=== PATIENT | male | born 1975 | race Caucasian/White ===

== ENCOUNTER 2024-11-06 09:45 | Inpatient (IN) | payer OTHER, BC ==
[~2024-11-06] VITALS: Ht 172.7 cm; Wt 65.1 kg
[2024-11-06] MEDS ORDERED: Diphth,Pertuss(Acell),Tet Vac 0.5 ML VIAL IM ONE ×2 (10:15→13:10)
[2024-11-06 10:24] LABS: BASOPHILS ABSOLUTE AUTO 0.04 K/mm3 (0.00-0.23); BASOPHILS PERCENT AUTO 0 % (0-2); EOSINOPHILS ABSOLUTE AUTO 0.03 K/mm3 (0.00-0.68); EOSINOPHILS PERCENT AUTO 0 % (0-6); Hematocrit 38.5 % (37.0-53.0); Hemoglobin 12.8 g/dL (13.5-17.5); IMMATURE GRAN ABSOLUTE AUTO 0.05 K/mm3 (0.00-0.10); IMMATURE GRAN PERCENT AUTO 0 % (0-1); LYMPHOCYTES ABSOLUTE AUTO 1.08 K/mm3 (0.84-5.20); LYMPHOCYTES PERCENT AUTO 6 % (21-46); MONOCYTES ABSOLUTE AUTO 2.09 K/mm3 (0.16-1.47); MONOCYTES PERCENT AUTO 12 % (4-13); Mean Corpuscular HGB 30.7 pg (26.0-34.0); Mean Corpuscular HGB Conc 33.2 g/dL (31.5-36.5); Mean Corpuscular Volume 92 fL (80-100); Mean Platelet Volume 9.2 fL (9.1-12.4); NEUTROPHILS ABSOLUTE AUTO 13.83 K/mm3 (1.96-9.15); NEUTROPHILS PERCENT AUTO 81 % (41-73); Platelet Count 305 K/mm3 (150-400); RDW Coefficient Variation 12.1 % (11.7-14.2); RDW Standard Deviation 41.1 fL (35.1-46.3); Red Blood Cell Count 4.17 M/mm3 (4.30-5.90); White Blood Cell Count 17.12 K/mm3 (4.00-11.30)
[2024-11-06 10:57] LABS: Albumin, Blood 3.5 g/dL (3.4-5.0); Albumin/Globulin Ratio 1.1 (0.8-1.8); Bilirubin, Total 0.9 mg/dL (0.1-1.0); Bun/Creatinine Ratio 20.8 (12.0-20.0); C-Reactive Protein, High Sens. 27.1 mg/L (0.000-3.000); Calcium, Blood 8.5 mg/dL (8.5-10.1); Creatinine, Blood 0.72 mg/dL (0.60-1.20); Globulin, Blood 3.2 g/dL (2.2-4.0); Potassium, Blood 3.5 mmol/L (3.5-5.5); Total Protein, Blood 6.7 g/dL (6.4-8.2)
[2024-11-06] MEDS ORDERED: NS 1,000 ML IV SCH ×2 (11:40)
[2024-11-06] MEDS ORDERED: Vancomycin HCL 1,250 MG in NS 250 ML IV ONE (12:00)
[2024-11-06] MEDS ORDERED: Ketorolac Tromethamine 15mg Vial IV ONE (12:30)
[2024-11-06] MEDS ORDERED: CeFAZolin Sodium 2,000 MG in NS 100 ML IV ONE (13:15)
[2024-11-06] MEDS ORDERED: Acetaminophen 325 MG TABLET PO PRN (14:50)
[2024-11-06] MEDS ORDERED: HYDROmorphone HCl 2 MG Tab PO PRN (14:50)
[2024-11-06] MEDS ORDERED: Prochlorperazine Edisylate 10 mg Vial IV PRN (14:55)
[2024-11-06] MEDS ORDERED: ALPRAZolam 0.5 MG Tab PO PRN (14:55)
[2024-11-06] MEDS ORDERED: Meropenem 1,000 MG in NS 100 ML IV SCH (16:00)
[2024-11-06 16:51] VITALS: BP 131/77
[2024-11-06] MEDS ORDERED: Cialis20 MG PO ×2 (16:56)
[2024-11-06] MEDS ORDERED: Vancomycin HCL 1,500 MG in NS 250 ML IV ONE (17:25)
[2024-11-06 20:21] VITALS: BP 117/78
--- NOTE | 2024-11-06 20:22 | NUR ---
PT ADMITTED TO ROOM 333 AT 1630 FROM THE ER ROOM. PT IS INDEPENDANT STEADY ON HIS FEET. ORIENTED TO ROOM SET UP AND CALL LIGHT. PT STATES PAIN IN RFA, WILL MEDICATE AND ADMIT PT.
[2024-11-06] MEDS ORDERED: Docusate Sodium 100 MG Cap PO SCH (21:00)
[2024-11-07] MEDS ORDERED: Vancomycin HCL 1,250 MG in NS 250 ML IV SCH (01:00)
--- NOTE | 2024-11-07 04:03 | NUR ---
SHIFT SUMMARY PATIENT HAD NO ACUTE CHANGES. ALERT ORIENTED AND INDEPENDENT IN ROOM. DENIES CHEST PAIN, SOB, AND N/V. LOW GRADE TEMP 99.2. REPORTED BILATERAL ARM PAIN AND PO DILAUDID 2 MG GIVEN PER EMAR. REPORTED ANXIETY AND XANAX 0.5 MG GIVEN PER EMAR. DRESSING TO BILATERAL ARMS INTACT. PIV INTACT. IV ABXS INFUSED. SLEPT MOST OF THE SHIFT. CALL LIGHT IN REACH. BED IN LOWEST POSITION. WILL CONTINUE TO MONITOR UNTIL DAY SHIFT NURSE ASSUMES CARE.
[2024-11-07 04:35] VITALS: BP 131/78
[2024-11-07 06:08] LABS: BASOPHILS ABSOLUTE AUTO 0.04 K/mm3 (0.00-0.23); BASOPHILS PERCENT AUTO 0 % (0-2); EOSINOPHILS PERCENT AUTO 1 % (0-6); Hematocrit 34.1 % (37.0-53.0); Hemoglobin 11.5 g/dL (13.5-17.5); IMMATURE GRAN ABSOLUTE AUTO 0.05 K/mm3 (0.00-0.10); IMMATURE GRAN PERCENT AUTO 0 % (0-1); LYMPHOCYTES ABSOLUTE AUTO 1.38 K/mm3 (0.84-5.20); LYMPHOCYTES PERCENT AUTO 9 % (21-46); MONOCYTES ABSOLUTE AUTO 2.14 K/mm3 (0.16-1.47); MONOCYTES PERCENT AUTO 14 % (4-13); Mean Corpuscular HGB 30.3 pg (26.0-34.0); Mean Corpuscular HGB Conc 33.7 g/dL (31.5-36.5); Mean Corpuscular Volume 90 fL (80-100); Mean Platelet Volume 9.5 fL (9.1-12.4); NEUTROPHILS ABSOLUTE AUTO 11.64 K/mm3 (1.96-9.15); NEUTROPHILS PERCENT AUTO 76 % (41-73); Platelet Count 281 K/mm3 (150-400); RDW Coefficient Variation 12.1 % (11.7-14.2); RDW Standard Deviation 39.9 fL (35.1-46.3); Red Blood Cell Count 3.79 M/mm3 (4.30-5.90); White Blood Cell Count 15.35 K/mm3 (4.00-11.30)
[2024-11-07 06:51] LABS: Albumin, Blood 2.8 g/dL (3.4-5.0); Albumin/Globulin Ratio 0.9 (0.8-1.8); Bilirubin, Total 0.9 mg/dL (0.1-1.0); Calcium, Blood 8.2 mg/dL (8.5-10.1); Creatinine, Blood 0.69 mg/dL (0.60-1.20); Potassium, Blood 3.7 mmol/L (3.5-5.5); Total Protein, Blood 5.8 g/dL (6.4-8.2)
[2024-11-07 08:19] VITALS: BP 117/81
--- NOTE | 2024-11-07 09:00 | NUR ---
pt laying in bed awake a/ox4, pleasant and cooperative with care, follows commands well, states he has a h/a this am, will give tylenol, lungs are clear t/o, resp even and unlabored, no cough noted, on r/a, hrr, no edema noted, ppp+2, cap refill <3 sec, vs stable, afebrile, piv to radha site is clear and patent, btx4, abd flat soft nontender, voids without diff, skin has sores to b/l fa's, with dressings in place, moses cristina, call light in reach.
[2024-11-07 16:18] VITALS: BP 134/94
[2024-11-07 17:07] LABS: Vancomycin, Trough 20.1 ug/mL (5.0-10.0)
[2024-11-07] MEDS ORDERED: Ketorolac Tromethamine 30mg Vial IV ONE (17:10)
[2024-11-07] MEDS ORDERED: Ketorolac Tromethamine 15mg Vial IV PRN (17:15)
[2024-11-07] MEDS ORDERED: Vancomycin HCL 1,000 MG in NS 250 ML IV SCH (18:00)
--- NOTE | 2024-11-07 18:23 | NUR ---
pt required one dose of pain meds for this shift, states the dilaudid wasn't really helping and feels his left arm is a bit more swollen, called with request for toradol, pt reports this took pain to 0, will keep npo after midnight, changed the dressings on his arms, no further changes this shift. call light in reach.
[2024-11-07 19:13] VITALS: BP 138/90
[2024-11-08] VITALS (15 sets, daily range): BP systolic 110–171; BP diastolic 80–93
--- NOTE | 2024-11-08 04:31 | NUR ---
SHIFT SUMMARY PT IS A/O X4, VERY PLEASANT AND ABLE TO MAKE HIS NEEDS KNOWN. NPO AFTER MIDNIGHT FOR I&D LE'S THIS MORNING. MEDICATED PER EMAR WITH TRAMADOL WHICH PT REPORTS EFFECTIVE. IV VANCO AND MEROPEREM INFUSED ORDERED. NO ACUTE EVENTS. BED AT THE LOWEST POSITION, CALL LIGHT W/I REACH.
[2024-11-08] MEDS ORDERED: propofoL 20 ML IV ONE ×2 (07:44→08:04)
[2024-11-08] MEDS ORDERED: FentaNYL Citrate 50 MCG/ML 2 ML Injection ONE ×2 (07:45→08:50)
[2024-11-08] MEDS ORDERED: Ondansetron HCl 2 MG / ML 2ML Vial ONE (07:54)
[2024-11-08] MEDS ORDERED: Dexamethasone Sod Phos 10 MG/ML 1ML VIAL ONE (07:54)
[2024-11-08] MEDS ORDERED: Vancomycin HCl 1000 MG ADDvantage ONE (08:10)
--- NOTE | 2024-11-08 08:31 | NUR ---
11/08/24 0831 Avani CantorYOMYCIN POWDER 1GM INSTILLED INTO OPERATIVE SITES. HALF OF VIAL INSTILLED INTO RIGHT FOREARM INCISION. HALF OF VIAL INSTILLED INTO LEFT FOREARM INCISION.
--- NOTE | 2024-11-08 08:44 | NUR ---
ASSUMPTION OF CARE: ASSUMED CARE OF PATIENT. AWAKE AND UP IN BATHROOM DURING SHIFT CHANGE REPORT. IMMEDIATE CALL @ SHIFT CHANGE FROM EMILY IN OR REQUESTING PATIENT BE UP, IN A GOWN, SALINE LOCKED AND MERRIPENUM @ BEDSIDE FOR TRANSFER TO OR FOR I/D. PATIENT NOTIFIED.
[2024-11-08] MEDS ORDERED: Ketorolac Tromethamine 30mg Vial ONE (08:50)
[2024-11-08 17:51] LABS: Vancomycin, Trough 17.3 ug/mL (5.0-10.0)
--- NOTE | 2024-11-09 03:35 | NUR ---
SHIFT SUMMARY NO ACUTE EVENTS DURING THIS SHIFT. VANCO INFUSED ORDERED. BILATERAL FOREARM DRESSINGS C/D/I. PT DENIES PAIN AND DISCOMFORT. A/OX4, INDEPENDENT WITHIN THE HOSPITAL ROOM AND COOPERATIVE WITH CARE. PT IS ABLE TO MAKE HIS NEEDS KNOWN. BED AT THE LOWEST POSITION, CALL LIGHT WITHIN REACH.
[2024-11-09 04:25] VITALS: BP 151/81
[2024-11-09 06:49] LABS: BASOPHILS ABSOLUTE AUTO 0.04 K/mm3 (0.00-0.23); BASOPHILS PERCENT AUTO 0 % (0-2); EOSINOPHILS ABSOLUTE AUTO 0.02 K/mm3 (0.00-0.68); EOSINOPHILS PERCENT AUTO 0 % (0-6); Hematocrit 34.5 % (37.0-53.0); Hemoglobin 11.8 g/dL (13.5-17.5); IMMATURE GRAN ABSOLUTE AUTO 0.05 K/mm3 (0.00-0.10); IMMATURE GRAN PERCENT AUTO 0 % (0-1); LYMPHOCYTES ABSOLUTE AUTO 2.02 K/mm3 (0.84-5.20); LYMPHOCYTES PERCENT AUTO 12 % (21-46); MONOCYTES ABSOLUTE AUTO 1.85 K/mm3 (0.16-1.47); MONOCYTES PERCENT AUTO 11 % (4-13); Mean Corpuscular HGB 30.9 pg (26.0-34.0); Mean Corpuscular HGB Conc 34.2 g/dL (31.5-36.5); Mean Corpuscular Volume 90 fL (80-100); Mean Platelet Volume 9.3 fL (9.1-12.4); NEUTROPHILS ABSOLUTE AUTO 12.25 K/mm3 (1.96-9.15); NEUTROPHILS PERCENT AUTO 76 % (41-73); Platelet Count 324 K/mm3 (150-400); RDW Coefficient Variation 11.9 % (11.7-14.2); RDW Standard Deviation 38.9 fL (35.1-46.3); Red Blood Cell Count 3.82 M/mm3 (4.30-5.90); White Blood Cell Count 16.23 K/mm3 (4.00-11.30)
[2024-11-09 07:08] LABS: Bun/Creatinine Ratio 13.6 (12.0-20.0); Calcium, Blood 8.5 mg/dL (8.5-10.1); Creatinine, Blood 0.81 mg/dL (0.60-1.20); Potassium, Blood 3.8 mmol/L (3.5-5.5)
--- NOTE | 2024-11-09 07:45 | NUR ---
ASSUMPTION OF CARE: THIS RN ASSUMED CARE OF PATIENT FOR SECOND DAY IN A ROW. AWAKE DURING SHIFT-CHANGE REPORT, SITTING UP IN BED. C/O 6/10 PAIN IN BUE, ESPECIALLY LAC. BREATHING EVEN AND UNLABORED ON ROOM AIR. MEDICATED PRN PAIN PO DILAUDID AND IV TORADOL. BED IN LOWEST POSITION. CALL LIGHT WITHIN REACH. ACUTE NEEDS MET.
[2024-11-09 08:11] VITALS: BP 138/75
[2024-11-09] MEDS ORDERED: Lisinopril 10 MG Tab PO SCH (09:00)
[2024-11-09 13:53] LABS: Percent Saturation 13.1 % (20.0-50.0)
[2024-11-09 16:41] VITALS: BP 156/88
--- NOTE | 2024-11-09 19:39 | NUR ---
END OF SHIFT SUMMARY: CONTACT PRECAUTIONS FOR POSITIVE MRSA CULTURE IN WOUNDS. A&Ox4. PLEASANT AND COOPERATIVE WITH CARE. CALLS APPROPRIATELY AND IS ABLE TO ADVOCATE NEEDS EFFECTIVELY. CONTINENT OF BOWEL AND BLADDER; LBM TODAY. AMBULATES INDEPENDENTLY. MEDS WHOLE c FLUIDS. MEDICATED PRN PAIN c IV TORADOL AND PO DILAUDID. CONTINUES c IV VANCO. C/O INCREASED PAIN AND "TIGHTNESS" LEFT ELBOW; AREA OF SWELLING AND REDNESS OUTLINED c SKIN MARKER AND DR. PICHARDO NOTIFIED. DRESSINGS LEFT IN PLACE PENDING INSTRUCTIONS FROM SURGEON. BED IN LOWEST POSITION, CALL LIGHT WITHIN REACH, ALL NEEDS MET. REPORT TO ONCOMING NURSE.
[2024-11-09 19:49] VITALS: BP 177/94
[2024-11-10] VITALS (11 sets, daily range): BP systolic 125–153; BP diastolic 80–97
[2024-11-10 06:04] LABS: Hematocrit 33.4 % (37.0-53.0); Hemoglobin 11.2 g/dL (13.5-17.5); Mean Corpuscular HGB 30.2 pg (26.0-34.0); Mean Corpuscular HGB Conc 33.5 g/dL (31.5-36.5); Mean Corpuscular Volume 90 fL (80-100); Mean Platelet Volume 9.4 fL (9.1-12.4); Platelet Count 339 K/mm3 (150-400); RDW Coefficient Variation 11.9 % (11.7-14.2); Red Blood Cell Count 3.71 M/mm3 (4.30-5.90); White Blood Cell Count 8.27 K/mm3 (4.00-11.30)
--- NOTE | 2024-11-10 06:08 | NUR ---
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 DRESSING IS CLEAN DRY AND INTACT., INDEPENDNT IN RM. C/O PAIN MEDICATION GIVEN RX AND PAIN DECREASED DOWN TO 0/10. PT REPORTED DILAUDUD ALONE WAS NOT DECREASEING PAIN, HOWEVER DILAUDID AND TORADOL TOGETHER DECREASED PAIN TO 0. PT WAS GIVEN INFORMTAION ON MRSA PER HIS REQUEST.
[2024-11-10 10:08] LABS: Vancomycin, Trough 23.1 ug/mL (5.0-10.0)
[2024-11-10] MEDS ORDERED: Lactated Ringer's 1,000 ML IV SCH (13:10)
[2024-11-10] MEDS ORDERED: propofoL 20 ML IV ONE (14:16)
[2024-11-10] MEDS ORDERED: FentaNYL Citrate 50 MCG/ML 2 ML Injection ONE ×2 (14:23→14:42)
--- NOTE | 2024-11-10 15:06 | NUR ---
11/10/24 1506 Avani Cantor PATIENT IS ON SCHEDULED VANCOMYCIN. NO ADDITIONAL PREOPERATIVE ANTIBIOTICS ORDERED.
[2024-11-10] MEDS ORDERED: Piperacillin/Tazobactam Sod 3.375 GM in NS 100 ML IV ONE (15:15)
--- NOTE | 2024-11-10 15:25 | NUR ---
NURSE NOTE: PT RETURNED FROM SURGERY. DRESSING C/D/I WITH WOUNDVAC IN PLACE. RESTING IN BED COMFORTABLY AT THIS TIME. PT STS PAIN IS A 4/10 AND THAT IS TOLERABLE. CALL LT WITHIN REACH.
[2024-11-10] MEDS ORDERED: Vancomycin HCL 750 MG in NS 250 ML IV SCH (16:00)
[2024-11-10] MEDS ORDERED: NS 250 ML IV PRN (16:10)
[2024-11-10] MEDS ORDERED: Ferrous Sulfate 325 MG Tab PO SCH (17:00)
--- NOTE | 2024-11-10 20:07 | NUR ---
SHIFT SUMMARY- PT ALERT AND ORIENTED, HE WAS INDEPENDENT, BUT POST-OP HE WAS CONNECTED TO THE WOUND VAC AND IV ABX SO HE HAS BEEN HAVING 1PA SINCE RETURNING FROM THE PROCEDURE. POST OP VITALS HAVE BEEN STABLE. NOW THAT IV IS SL THE PT MAY BE ABLE TO WALK TO THE BATHROOM. WB TOLLERATED ON THE BUE NWB ON THE 3RD PHALANGE THAT IS SPLINTED AFTER SURGICAL REPAIR RECENTLY. BEDSIDE REPORT COMPLETED WITH THE NIGHT RN, NO S&S OF DISTRESS NOTED AT THE TIME OF REPORT. PT IN BED, CALL LIGHT IN REACH. PT C/O POST OP HEADACHE, TREATED WITH TYLENOL, WITH NO EFFECT (PER PT) TREATED WITH TORADOL IV AT SHIFT CHANGE.
--- NOTE | 2024-11-10 22:24 | NUR ---
WOUND CARE PTS WOUND VAC WAS NOT PROPERLLY SUCKING BLOOD WAS POOLING UNDER DRESSING. DISCUSSED WITH DR. BUNN AND ORDERS GIVEN TO CHANGE WOUND VAC. DRESSING WAS REMOVED AND A STERILE FIELD WAS CREATED. PT HAS A LARGE BLOOD CLOT DEVELOPING UNDER DRESSING THIS WAS REMOVED AND WOUND WAS CLEANSED WITH NORMAL SALINE. 2 PIECES OF BLACK FOAM WERE PLACED ONE IN TUNNEL AND ONE COVERING WOUND. WOUND VAC IS RUNNING AT 120 MMHG AND DRAINING SCANT SS DRAINAGE. PT EDUCATED ON WOUND VAC AND MAINTAINING CARE AND S/S TO NOTIFY RN.
[2024-11-11] MEDS ORDERED: Piperacillin/Tazobactam Sod 3.375 GM in NS 100 ML IV SCH
--- NOTE | 2024-11-11 00:02 | NUR ---
pT LYING IN BED WITH SO AND ACTIVELY USING ARM, TAPE LOOSENED AND ARM BEGAN BLEEDING AGAIN. WOUND VAC WAS REINFOCED, COVERED IN COBAN, ELEVATED AND REQUESTED PT LET ARM REST.
[2024-11-11 02:59] VITALS: BP 110/72
--- NOTE | 2024-11-11 05:12 | NUR ---
IVF INFUSING WITHOUT DIFFICULTY. BLEEDING FROM WOUND VAC DRESSING CHANGE WAS MODERATE AFTER CHANGE AND SLOWED TO MINIMAL. PT CONTINUES TO HAVE SWELLING IN L ARM. PT DENIES PAIN T/O THIS SHIFT. WOUND VAC IN PLACE RUNNING AT 120 MMHHG RX. PT IS A&OX4, INDEPENDENT IN .
--- NOTE | 2024-11-11 06:48 | NUR ---
PT WOUND VAC IN DRAINING BLOOD AND CLOTTING UNDER DRAPING. DRESSING WAS CHANGED 2 PIECES OF BLACK WOUND VAC FOAM WERE REMOVED AND 2 PIECES OF BLACK WOUND VAC FOAM WERE PLACED. PT SUCTION IS AT 120 MMHG DRAINING SEROSANGUINOUS FLUID. FOAM PLACED IN PT ELBOW AND HELD LOOSELY WITH COBAN TO REMIND PT TO NOT BEND ELBOW TO HELP ASSIST WITH NO LEAKING.
[2024-11-11 07:23] VITALS: BP 115/90
[2024-11-11 15:17] VITALS: BP 128/91
[2024-11-11 15:41] LABS: Vancomycin, Trough 17.2 ug/mL (5.0-10.0)
--- NOTE | 2024-11-11 18:23 | NUR ---
SHIFT SUMMARY- PT ALERT, ORIENTED AND INDEPENDENT IN THE ROOM. PER DR BARRAZA THE PT HAS A DRESSING ON THE MIDDLE FINGER THAT REQUIRES A DRESSING CHANGE, DAILY. DRESSING WAS CHANGED PER DR INSTRUCTIONS, THIS EVENING. PT TOLLERATED THE DRESSING CHANGE WELL. THE INSERTION POINTS OF THE PINS WERE CLEAN WITH NO APPARENT DRAINAGE. WOUND VAC CANISTER WAS CHANGED AFTER THE FINGER DRESSING WAS COMPLETED AND CLOSED. CANISTER HAD 275ML OF BRIGHT RED AND SEROSANGUINOUS OUTPUT. PT HAS HAD NO C/O PAIN T/O THE SHIFT. PT CURRENTLY IN BED, CALL LIGHT IN REACH, NO S&S OF DISTRESS NOTED.
[2024-11-11 20:21] VITALS: BP 127/85
[2024-11-11] MEDS ORDERED: Lactobacil 2-S.Thermo-Bifido 1 1 Cap PO SCH (21:00)
[2024-11-12 00:24] VITALS: BP 103/74
--- NOTE | 2024-11-12 04:22 | NUR ---
SHIFT SUMMARY ADMITTED FOR CELLULITIS BUE FOREARMS. FULL CODE. ISOLATION FOR MRSA IN WOUND. I&D'S PERFORMED ON 11/08 AND 11/10. WOUND VAC IN PLACE ON LEFT SITE. 3RD FINGER OF LEFT HAND ALSO HAS PINS AND BANDAGES FROM A PREVIOUS PROCEDURE. A&O X4. INDEPENDENT. ON RA. IV ANTIB RX ARE SCHEDULED. ORTHO CONSULT IS DR. VASQUES. HE IS CURRENTLY LOOKING FOR HOUSING AND IS NEW TO THIS AREA.
[2024-11-12 05:26] VITALS: BP 120/87
[2024-11-12 07:32] LABS: Bun/Creatinine Ratio 12.6 (12.0-20.0); Calcium, Blood 8.1 mg/dL (8.5-10.1); Creatinine, Blood 0.95 mg/dL (0.60-1.20); Potassium, Blood 3.9 mmol/L (3.5-5.5)
[2024-11-12 08:31] VITALS: BP 127/80
--- NOTE | 2024-11-12 13:16 | NUR ---
CALLED DR PICHARDO- PT LOST IV ACCESS. CALLED DR PICHARDO PRIOR TO STARTING A NEW LINE. PERIPHERAL IV'S ARE ONLY LASTING 24 HOURS. ASKED IF THE PT WAS GOING TO REQUIRE CARE HOME ABX. HE WILL SPEAK TO DR BARRAZA AND LET THIS RN KNOW WHAT TYPE OF ACCESS THE PT WILL REQUIRE. HE IS AWARE THE PT HAS NOT RECIEVED THE 12 O'CLOCK DOSE OF ZOSYN.
[2024-11-12 15:33] VITALS: BP 122/89
--- NOTE | 2024-11-12 17:37 | NUR ---
SHIFT SUMMARY: PT IS A&0 X4. PLEASANT AND COORPERATIVE WITH CARE, CALLS APPROPRIATELY AND IS ABLE TO ADVOCATE NEEDS. INDEPENDENT AND CONTINENT OF BOTH BLADDER AND BOWELS. MEDICATED WITH IV ABX PER AUG. WOUNDVAC IN PLACE WITH DRESSING C/D/I. NO S/S OF DISTRESS THROUGHOUT SHIFT. BED IN THE LOWEST POSITION, CALL LT WITHIN REACH, AND SITTING UPRIGHT FOR DINNER.
[2024-11-12 20:09] VITALS: BP 127/89
[2024-11-13 02:53] VITALS: BP 117/79
--- NOTE | 2024-11-13 04:48 | NUR ---
SHIFT SUMMARY A&0X4, CALLS APPROPRIATELY, INDEPENDENT IN ROOM, CONTINENT, AFEBRILE/VSS,RECEIVED IV ANTIBIOTICS PER ORDERS (ZOSYN,VANCOMYCIN) THIS SHIFT FOR CELLULITIS W/NO ADVERSE RXNS. VANCOMYCIN TROUGH IS DUE 11/13 AT 1500. DAILY DRESSING CHANGE RUE WOUND WAS DONE ON DAYSHIFT PER REPORT AND DSG REMAINS CDI. LT FINGER DRESSING CHANGED THIS SHIFT, PIN INTACT &NO REDNESS AT PIN SITE FINGER IS EDEMATOUS,NO DRAINAGE NOTED, WOUND VAC TO LUE WOUND ON & FUNCTIONING PROPERLY W/ SEROSANGUINOUT DRAINAGE IN CANISTER. IN REPORTS THAT HASN'T BEEN SLEEPING WELL. PRN XANAX GIVEN PER REQUEST AT BEDTIME. , PT WAS INSTRUCTED TO CALL FOR SBA IF ANY DIZZINESS, LIGHTHEADEDNESS OR OTHER SIDE EFFECTS FROM MED AND HE AGREED.
[2024-11-13 08:08] VITALS: BP 127/93
[2024-11-13 16:09] LABS: Creatinine, Blood 1.17 mg/dL (0.60-1.20); Vancomycin, Trough 17.3 ug/mL (5.0-10.0)
[2024-11-13 19:23] VITALS: BP 139/85
--- NOTE | 2024-11-13 19:34 | NUR ---
SHIFT SUMMARY PT A&OX4. PT ADMITTED DUE TO CELLULITIS. NIGHT RN REPORTED CHANGING DRESSING ON FINGER LAST NIGHT. WOUND CARE COMPLETE ON R FOREARM, APPLIED NEW XEROFORM, MEPILEX W STRETCH NETTING. NO SHADOWING NOTED. PT REPORTS NO GENERALIZED PAIN. DR. VASQUES CAME TO SEE PT THIS EVENING, REMOVED THE WOUND VAC ON R ARM, APPLIED STICHES AND ORDERED DAILY WOUND DRESSING CHANGE. PT GOT IV ANTIBIOTICS TODAY. PT INDEPENDENT IN ROOM. PT CONT OF URINE AND BM. PT IN BED, BED IN LOWEST POSITION, CALL LIGHT IN REACH.
--- NOTE | 2024-11-14 03:47 | NUR ---
SHIFT SUMMARY ADMITTED FOR CELLULITIS TO BILATERAL FOREARMS. FULL CODE. ISOLATION FOR MRSA IN THE WOUND. ORTHO CONSULT IS DR. VASQUES. WOUND VAC REMOVED ON PREVIOUS SHIFT. IV ANTIB RX ARE SCHEDULED. PATIENT IS CURRENTLY WITHOUT HOUSING AT THIS TIME. HE IS A&O X4, INDEPENDENT IN ROOM. ON REGULAR DIET. ON RA. I&D'S OF BILATERAL FOREARMS ON 11/08, ON LEFT FOREARM 11/10. PREVIOUS SURGICAL INTERVENTION IN [place] OF LEFT MIDDLE FINGER WITH PINS STILL IN PLACE. NO NEW CONCERNS THIS SHIFT.
[2024-11-14 04:18] VITALS: BP 117/74
[2024-11-14 07:12] VITALS: BP 113/79
[2024-11-14] MEDS ORDERED: Ciprofloxacin 500 MG Tab PO SCH (09:00)
[2024-11-14 15:43] VITALS: BP 124/78
[2024-11-14 16:12] LABS: Creatinine, Blood 0.99 mg/dL (0.60-1.20); Vancomycin, Trough 15.6 ug/mL (5.0-10.0)
[2024-11-14] MEDS ORDERED: Vancomycin HCL 1,250 MG in NS 250 ML IV SCH (17:00)
[2024-11-14] MEDS ORDERED: CIPR500 PO ×2 (18:07)
[2024-11-14] MEDS ORDERED: ACET325 PO ×2 (18:07)
[2024-11-14] MEDS ORDERED: Prinivil10 MG PO ×2 (18:08)
[2024-11-14] MEDS ORDERED: FERSU300 PO ×2 (18:08)
[2024-11-14] MEDS ORDERED: VISBIOME 112.51 EACH PO ×4 (18:09)
[2024-11-14] MEDS ORDERED: CUBICIN RF500 M1 IV ×2 (18:11)
--- NOTE | 2024-11-14 19:20 | NUR ---
DISCHARGE NOTE PT A&OX4. PT ADMITTED DUE TO CELLULITIS, PT REPORTS SOME PAIN ON ARMS, PAIN MANAGED PER EMAR. PT INDEPENDENT IN ROOM.PT ON CONTACT ISO FOR MRSA. WOUND CARE COMPLETE PER ORDER ON IRVING/JASE/L MIDDLE FINGER. ORDERED DISCHARGE. PT WENT WITH EXTRA WOUND CARE SUPPLIES. PT EDUCATED ON WOUND CARE. WENT OVER DISCHARGE INSTRUCTIONS AND MEDS. MEDS FAXED TO PREFERED PHARMACY. PT GOT IV VANCO BEFORE DISCHARGE. PT UNDERSTANDS TO REPORT TO PT ENTERANCE AT 1130 TOMORROW AND TO CALL WOUND CARE CLINIC FOR APPOINTMENT SUNDAY. PT LEFT WITH BELONGINGS AND HARD SCRIPT FOR WORK NOTICE GIVEN BY DR. PICHARDO. IV REMOVED. PT REPORTS WILL ESTABLISH PCP. PT ESCORTED TO PT ENTERENCE BY [facility] SUPERINTENDENT.
== END 2024-11-14 18:53 | disposition home or self-care (01) | DRG 854 ==
LOC: ER 09:45 → MEDS 14:50 → ERHOLD 14:50 → MEDS 16:29
PROVIDERS: Internal Medicine; Orthopaedic Surgery; Physician Assistant; ADMIT Internal Medicine
PROC: 3E03329 Introduction of Other Anti-infective into Peripheral Vein, Percutaneous Approach (ICD-10-PCS; 2024-11-06)
PROC: 0JBG0ZZ Excision of Right Lower Arm Subcutaneous Tissue and Fascia, Open Approach (ICD-10-PCS; 2024-11-10)
PROC: 0J9 Subcutaneous Tissue and Fascia, Drainage (ICD-10-PCS; principal; 2024-11-10 13:00)
DX: A41.9 Sepsis, unspecified organism (principal); L02.413 Cutaneous abscess of right upper limb; L03.114 Cellulitis of left upper limb; L02.414 Cutaneous abscess of left upper limb; S51.842A Puncture wound with foreign body of left forearm, initial encounter; S51.841A Puncture wound with foreign body of right forearm, initial encounter; L89.019 Pressure ulcer of right elbow, unspecified stage; B95.62 Methicillin resistant Staphylococcus aureus infection as the cause of diseases classified elsewhere; I10 Essential (primary) hypertension; D50.9 Iron deficiency anemia, unspecified; Z79.899 Other long term (current) drug therapy; W29.3XXA Contact with powered garden and outdoor hand tools and machinery, initial encounter
CPT/HCPCS: 36415; 73070; 73201; 80048; 80053; 80202; 82565; 82728; 83540; 83550; 83605; 85025; 85027; 85651; 86141; 87040; 87070; 87075; 87077; 87147; 87186; 87205; 90471; 90715; 96361; 96365-59; 96375-59; 99285-25; A9270; J0690; J1100; J1885; J2185; J2405; J2543; J2704; J3010; J3370; J7030; J7050; J7120; Q9967

== ENCOUNTER 2024-11-15 02:31 | Day surgery (SDC) | payer OTHER ==
[~2024-11-15 02:31] MED LIST: ACET325 PO; CIPR500 PO; CUBICIN RF500 M1 IV; Cialis20 MG PO; FERSU300 PO; Prinivil10 MG PO; VISBIOME 112.51 EACH PO
[2024-11-15] MEDS ORDERED: DAPTOmycin 400 MG in NS 50 ML IV SCH (06:00)
[2024-11-15 12:00] VITALS: BP 114/81
== END 2024-11-15 12:14 | disposition home or self-care (01) ==
LOC: ATC 02:31
DX: L03.114 Cellulitis of left upper limb (principal); L03.113 Cellulitis of right upper limb
CPT/HCPCS: 96365; J0878

== ENCOUNTER 2024-11-16 01:26 | Day surgery (SDC) | payer OTHER, BC ==
[2024-11-16] MEDS ORDERED: DAPTOmycin 400 MG in NS 50 ML IV SCH (06:00)
[2024-11-16 11:42] VITALS: BP 122/87
== END 2024-11-16 12:02 | disposition home or self-care (01) ==
LOC: ATC 01:26
DX: L03.114 Cellulitis of left upper limb (principal); L03.113 Cellulitis of right upper limb
CPT/HCPCS: 96365; J0878

== ENCOUNTER 2024-11-17 07:40 | Day surgery (SDC) | payer OTHER, BC ==
[2024-11-17] MEDS ORDERED: DAPTOmycin 400 MG in NS 50 ML IV SCH (08:20)
[2024-11-17 11:38] VITALS: BP 150/90
== END 2024-11-17 11:58 | disposition home or self-care (01) ==
LOC: ATC 07:40
DX: L03.113 Cellulitis of right upper limb (principal); L03.114 Cellulitis of left upper limb
CPT/HCPCS: 96365; J0878

== ENCOUNTER 2024-11-20 00:32 | Day surgery (SDC) | payer OTHER, BC ==
[2024-11-20] MEDS ORDERED: DAPTOmycin 400 MG in NS 50 ML IV SCH (06:00)
[2024-11-20 10:29] VITALS: BP 131/86
== END 2024-11-20 10:53 | disposition home or self-care (01) ==
LOC: ATC 00:32
DX: L03.114 Cellulitis of left upper limb (principal); L03.113 Cellulitis of right upper limb
CPT/HCPCS: 96365; J0878